=== PATIENT | male | born 1950 | race African-American/Black ===

== ENCOUNTER 2020-08-28 23:54 | Inpatient (IN) | payer MEDICARE, MEDICAID ==
[2020-08-29 00:30] VITALS: BMI 23.3
[2020-08-29] MEDS ORDERED: Acetaminophen 325 MG TAB PO PRN (01:23)
[2020-08-29] MEDS ORDERED: Sodium Chloride 0.9% 1,000 ML IV SCH (01:30)
--- NOTE | 2020-08-29 01:39 | PDOC.HHP ---
Hospitalist HPI - History of Present Illness Altered mental status History of Present Illness: 70-year-old -[place] gentleman with a diagnosis of dementia, alert but confused at baseline was sent to [facility] ED due to worsening mental status. CT head done demonstrated ventriculomegaly which is unchanged from previous CTs. Per report, patient has been scheduled to have a CASING MAN shunt done the end of this month. There was a concern for worsening hydrocephalus. Patient was then transferred here to be evaluated by neurosurgery. UA done in the ED did not show any evidence of UTI. Patient was afebrile, no evidence of sepsis, no leukocytosis. Patient was confused when I saw him on the floor for examination and could not provide any history. Hospitalist ROS - Review of Systems ROS unobtainable: due to mental status - Medication Medications: Medication Instructions Recorded Confirmed Type Amlodipine [Norvasc] 10 mg DAILY 08/29/20 08/29/20 History Desmopressin Acetate 0.1 mg BID 08/29/20 08/29/20 History Dorzolamide HCl/Timolol Maleat 1 drop BID 08/29/20 08/29/20 History [Dorzolamide HCl/Timolol Maleate Ophth] Finasteride 5 mg DAILY 08/29/20 08/29/20 History Fluticasone Propionate [Flonase 2 sprays DAILY 08/29/20 08/29/20 History Nasal [place]] Levothyroxine Sodium 75 mcg DAILY 08/29/20 08/29/20 History Metoprolol Tartrate 25 mg BID-WM 08/29/20 08/29/20 History Montelukast Sodium [Singulair] 10 mg DAILY 08/29/20 08/29/20 History Montelukast Sodium [Singulair] 10 mg HS 08/29/20 08/29/20 History Rosuvastatin Calcium 20 mg HS 08/29/20 08/29/20 History Tamsulosin HCl [Flomax] 0.4 mg DAILY 08/29/20 08/29/20 History Hospitalist History - Past Medical History Other Medical History: Hypothyroidism, dementia, hyponatremia, hypercholesterolemia, GERD, BPH. - Family History Other Family History: Reviewed and noncontributory - Social History Smoking Status: Never smoker Alcohol: reports: None Drugs: reports: none - Exam General Appearance: NAD General - other findings: Confused Eye: PERRL, anicteric sclera ENT: normocephalic atraumatic, no oropharyngeal lesions, moist mucosa Neck: supple, symmetric, no JVD, no thyromegaly Heart: RRR, no murmur, no gallops Respiratory: CTAB, no wheezes, no rales, no ronchi Gastrointestinal: soft, non-tender, non-distended, normal bowel sounds Extremities: no cyanosis, no edema Skin: normal turgor, no rashes Neurological: cranial nerve grossly intact, no weakness, no focal deficits Musculoskeletal: normal tone, normal strength Psychiatric - other findings: Confused. Hospitalist Results - Labs Result Diagrams: 08/29/20 05:20 Lab results: WBC 5.4, hemoglobin 13.6, platelet 189, sodium 133 potassium 4.2 chloride 100 CO2 24 BUN 8 creatinine 0.8. UA negative for UTI. - EKG Interpretation EKG: Normal sinus rhythm. - Radiology Interpretation CT scan - head Status: report reviewed by me (Ventriculomegaly with decreased attenuation of periventricular white matter stable as compared to findings on June 09, 2020.) Hospitalist H&P A/P - Problem (1) Altered mental status Code(s): R41.82 - ALTERED MENTAL STATUS, UNSPECIFIED Status: Acute (2) Hydrocephalus Code(s): G91.9 - HYDROCEPHALUS, UNSPECIFIED Status: Acute (3) Hyponatremia Code(s): E87.1 - HYPO-OSMOLALITY AND HYPONATREMIA Status: Acute (4) Dementia Code(s): F03.90 - UNSPECIFIED DEMENTIA WITHOUT BEHAVIORAL DISTURBANCE Status: Acute (5) BPH (benign prostatic hyperplasia) Code(s): N40.0 - BENIGN PROSTATIC HYPERPLASIA WITHOUT LOWER URINRY TRACT SYMP Status: Acute - Plan Plan: Admit to the medical floor. Supportive measures with IV hydration. Check vitamin B12, TSH. Consult to neurosurgery. IV hydration with normal saline to treat hyponatremia Continue home medications for other chronic medical problems. I am unable to discuss advanced directive at this time given patient's altered mental status and no family member available.
[2020-08-29 05:46] LABS: #Lymphocytes 1.4 thou/uL (1.20-3.40); #Monocytes 0.7 thou/uL (0.11-0.59); #Neutrophils 2.4 thou/uL (1.40-6.50); %Basophils 0.2 % (0.0-1.0); %Eosinophils 0.5 % (0.0-10.0); %Lymphocytes 31.8 % (21.0-51.0); %Monocytes 14.5 % (0.0-10.0); Hemoglobin 13.4 g/dL (14.0-18.0); Mean Corpuscular HGB CONC 32.9 g/dL (32.0-36.0); Mean Corpuscular Hemoglobin 32.8 pg (27.0-31.0); Mean Corpuscular Volume 99.8 fL (78.0-98.0); Mean Platelet Volume 7.6 fL (7.4-10.4); Platelet Count 190 thou/uL (130-400); RBC Distribution Width 11.3 % (11.5-14.5); White Blood Cell (WBC) Count 4.5 thou/uL (4.8-10.8)
[2020-08-29 06:17] LABS: Anion Gap 11 mmol/L (10-20); BUN (Urea Nitrogen) 7 mg/dL (8.4-25.7); Calc. Creatinine Clearance 99 mL/min (70-130); Calcium 9.3 mg/dL (7.8-10.44); Carbon Dioxide 26 mmol/L (23-31); Chloride 106 mmol/L (98-107); Estimated GFR-MDRD Greater than 90; Glucose 97 mg/dL (80-115); Potassium 3.8 mmol/L (3.5-5.1); Sodium 139 mmol/L (136-145)
[2020-08-29 06:32] LABS: Thyroid Stimulating Hormone 1.7883 uIU/mL (0.35-4.94)
[2020-08-29 07:09] VITALS: TEMP 97.6
[2020-08-29] MEDS ORDERED: Amlodipine 10 MG TAB PO SCH (09:00)
[2020-08-29] MEDS ORDERED: Fluticasone Propionate Nasal Spray 16 gm Bottle NASAL SCH (09:00)
[2020-08-29] MEDS ORDERED: Tamsulosin HCl 0.4 MG CAP PO SCH (09:00)
[2020-08-29] MEDS ORDERED: Levothyroxine Sodium 75 MCG TAB PO SCH (09:00)
[2020-08-29] MEDS ORDERED: Montelukast Sodium 10 mg Tablet PO SCH ×2 (09:00→21:00)
[2020-08-29] MEDS ORDERED: Finasteride 5 MG TAB PO SCH (09:00)
[2020-08-29] MEDS ORDERED: Enoxaparin Sodium 40 MG/0.4 ML SYRINGE SC SCH (09:00)
--- NOTE | 2020-08-29 11:42 | RAD ---
XR Chest 1 View Portable History: Altered mental status Comparison: None. Findings: Lungs are clear. No pneumothorax or effusion. Cardiac silhouette and mediastinal contours a re within normal limits. No acute osseous abnormality. Impression: No acute intrathoracic abnormality.
[2020-08-29 12:01] VITALS: BP 143/77
[2020-08-29] MEDS ORDERED: Sodium Chloride 0.9% 500 ML IV SCH (14:00)
[2020-08-29] MEDS ORDERED: Metoprolol Tartrate 25 MG TAB PO SCH (17:00)
[2020-08-29] MEDS ORDERED: FLU VACC QS2020-21(65YR UP)/PF 240 MCG/0.7 ML SYRINGE IM ONE (21:00)
[2020-08-29] MEDS ORDERED: Desmopressin 0.2 mg Tablet PO SCH (21:00)
[2020-08-29] MEDS ORDERED: Rosuvastatin 20 MG TAB PO SCH ×2 (21:00)
--- NOTE | 2020-08-30 01:55 | DIS ---
DATE OF ADMISSION: 08/28/2020 DATE OF DISCHARGE: 08/29/2020 DISCHARGE DIAGNOSES: 1. Acute metabolic encephalopathy, unclear etiology. 2. Hyponatremia, stable. 3. Hyperlipidemia. 4. Hydrocephalus. 5. Dementia. HOSPITAL COURSE: The patient is a 70-year-old male, who initially presented to the hospital for change in mental status. The patient lives with the family. I did speak with patient's sister, Ms. Alcaraz, updated her. Neurosurgery was consulted, who stated that patient will just keep his normal followup appointment this month. No current intervention is required. His UA and chest x-ray were normal. No elevated leukocytosis. The patient had mildly elevated CK, which most likely was secondary to fall at home. However, family stated that he did not hit his head. He did have a CT brain here, which did not show any acute abnormalities. He did have ventriculomegaly with decreased attenuation of periventricular white matter, however, this was stable. The patient's EKG was normal sinus rhythm. The patient's TSH was normal. The patient will be discharged home. He will follow up with primary and also with Neurosurgery. I did discuss this case with the patient's sister and she is ready to take the patient back home. DISCHARGE MEDICATIONS: As of the followin. Amlodipine 10 mg daily. 2. Desmopressin 0.1 b.i.d. 3. Levothyroxine 75 mcg daily. 4. Singulair 10 mg daily. 5. Metoprolol 25 mg b.i.d. 6. Tamsulosin 0.4 daily. 7. Atorvastatin 20 mg p.o. at bedtime. I did not stop the Crestor since his mild elevated CK was most likely secondary to a fall and also patient drinks lot of water per the family. PHYSICAL EXAMINATION: VITAL SIGNS: Temperature 97.6, 60, 18, 98% on room air, 114/72. GENERAL: He is awake, alert, and oriented x3. Does not appear in distress. CV: S1, S2 present. No murmurs, rubs, or gallops. Again, he will be discharged home. Follow up with primary. Job ID: [id number]
--- NOTE | 2020-09-01 04:28 | PQF ---
CLINICAL DOCUMENTATION CLARIFICATION FORM: Dear : Rin Telles Date / Time: 09/01/2020426 Please exercise your independent, professional judgment in responding to the clarification form. Clinical indicators are provided on the bottom of this form for your review In your clinical opinion based on clinical findings below, can you please identify the etiology of Metabolic Encephalopathy if due to: Please check appropriate box(es): [ ] Hydrocephalus [ ] Hyponatremia [x ] Dementia [ ] Other diagnosis [ ] Unable to determine Physician Signature: Date/Time: For continuity of documentation, please document condition throughout progress notes and discharge summary. Thank You. To be completed by CDI/Coding staff for physician review: Present Clinical Indicators - Signs / Symptoms / Labs Results and Location in Medical Record [X] BUN 7, Creatinine 0.79, Sodium 139, creatinine kinase 425 Laboratory 08/29 [X] BP 157/73, Pulse 66, Resp 18, Temp 97.7 Vital signs 08/29 [X] Alert but confused at baseline H&P p1 08/28 Dr Luna [X] CT head: Demonstrated ventriculomegaly H&P p1 08/28 Dr Luan [X] Concern for worsening hydrocephalus H&P p1 08/28 Dr Luna [X] Acute metabolic encephalopathy DS p1 08/29 Dr Telles Present Risk Factors Results and Location in Medical Record [X] 70 year-old Male H&P p1 08/28 Dr Luna [X] Dementia H&P p1 08/28 Dr Luna [X] Hyponatremia H&P p1 08/28 Dr Luna [X] Hydrocephalus H&P p1 08/28 Dr Luna [X] HLD H&P p1 08/28 Dr Luna Present Treatments Results and Location in Medical Record [X] IVF Normal Saline 1L MAR 08/29 [X] CT head H&P p1 08/28 Dr Luna [X] Scheduled for TRANSPLANT NURSE PRACTITIONER shunt H&P p1 08/28 Dr Luna CDS/[facility] Signature: Ioana Navarro Phone #: ext [phone] Date/Time: 09/01/20208 This is a permanent part of the Medical Record [facility]
== END 2020-08-29 16:52 | disposition home or self-care (01) | DRG 884 ==
LOC: T4-B 23:54
PROVIDERS: ADMIT Internal Medicine; ATTEND Internal Medicine
DX: F03.90 Unspecified dementia, unspecified severity, without behavioral disturbance, psychotic disturbance, mood disturbance, and anxiety (principal); G93.41 Metabolic encephalopathy; E87.1 Hypo-osmolality and hyponatremia; G91.9 Hydrocephalus, unspecified; E78.5 Hyperlipidemia, unspecified; E03.9 Hypothyroidism, unspecified; E78.00 Pure hypercholesterolemia, unspecified; K21.9 Gastro-esophageal reflux disease without esophagitis; N40.0 Benign prostatic hyperplasia without lower urinary tract symptoms; Z79.899 Other long term (current) drug therapy; Z79.51 Long term (current) use of inhaled steroids
CPT/HCPCS: 36415; 71045; 80048; 82550; 82607; 84443; 85025; J1650

== ENCOUNTER 2020-09-11 09:18 | Inpatient (IN) | payer MEDICARE, MEDICAID ==
[2020-09-10 12:48] VITALS: BMI 29.9
--- NOTE | 2020-09-10 16:09 | HP ---
REASON FOR HISTORY AND PHYSICAL: Surgery on 09/11/2020, case #[id number]. HISTORY OF PRESENT ILLNESS: Mr. Rodgers is a 70-year-old gentleman with hydrocephalus and cognitive impairment. His sister reports that he has had some recent falls and gradually worsening gait and is wanting to proceed with ADJUNCT TRAINER shunt. REVIEW OF SYSTEMS: CONSTITUTIONAL: Denies fever or chills. ENT: Denies change in vision or hearing. CARDIAC: Denies chest pain, shortness of breath, or diaphoresis. PULMONARY: Denies shortness of breath, cough, or hemoptysis. GI: Denies abdominal pain, nausea, vomiting, diarrhea, change in stool formation and consistency. : Denies trouble with urination, frequency of urination, or bloody urine. SKIN: Denies skin rash, bruising, bleeding, or skin masses. MUSCULOSKELETAL: As per history of present illness. NEUROLOGIC: As per history of present illness. PSYCHOLOGIC: Denies anxiety, depression, or behavior changes. MEDICAL HISTORY: High cholesterol, depression, glaucoma/cataracts, high blood pressure, thyroid disease, dementia, hyponatremia, GERD, BPH. FAMILY HISTORY: Reviewed and noncontributory. SOCIAL HISTORY: Smoking status, never smoker. Alcohol, reports none. Drugs, reports none. MEDICATIONS: 1. Amlodipine 10 mg. 2. Desmopressin 0.1 mg. 3. Dorzolamide/timolol one drop b.i.d. 4. Finasteride 5 mg. 5. Fluticasone 2 sprays. 6. Levothyroxine 75 mcg. 7. Metoprolol 25 mg. 8. Singulair 10 mg. 9. Rosuvastatin 20 mg. 10. Tamsulosin. 11. Flomax 0.4 mg. ALLERGIES: NO KNOWN ALLERGIES. PHYSICAL EXAMINATION: VITAL SIGNS: Weight 190 pounds. HEENT: Pupils are equal. Extraocular movements are intact. NECK: Soft, supple. No masses are noted. Range of motion is intact and nonpainful. GENERAL APPEARANCE: NAD, confused. Gait and station: Off-balance and stiff. Motor exam: No new weakness. NEUROLOGIC: Cranial nerves grossly intact. No weakness. No focal deficits. IMAGING STUDIES: Head CT, hydrocephalus, large ventricles. ASSESSMENT: Hydrocephalus. PLAN: 1. ADJUNCT TRAINER shunt. 2. Anesthesia clearance. 3. Preop labs; CBC, PT, PTT, COVID-19 testing. 4. Programmable valve to be placed. INFORMED CONSENT: We discussed the indications, risks, benefits, alternatives, and expected results from surgery. The risks discussed included, but were not limited to, infection, bleeding, CSF leak, brain damage, significant loss of neurological function, seizure, stroke, dependency for normal care, cardiopulmonary complications of anesthesia or . Long-term complications discussed included, but were not limited to shunt failure and shunt infection. The family understands the risk and is willing to proceed. Job ID: [id number]
[2020-09-11] MEDS ORDERED: PHENYLEPHRINE-NS 100 MCG/ML 10 ML SYRINGE ONE (10:41)
[2020-09-11] MEDS ORDERED: EPHEDRINE 25 MG/5 ML SYRINGE ONE (10:41)
[2020-09-11] MEDS ORDERED: Dexamethasone 20 MG/5 ML VIAL ONE (10:41)
[2020-09-11] MEDS ORDERED: Glycopyrrolate 0.2 MG/ML 5 ML SYRINGE ONE (10:41)
[2020-09-11] MEDS ORDERED: Rocuronium Bromide 10 MG/ML (10ML VIAL) ONE (10:41)
[2020-09-11] MEDS ORDERED: Lidocaine 1% PF 5 ML VIAL ONE (10:41)
[2020-09-11] MEDS ORDERED: Ondansetron PF 4 MG/2 ML Vial ONE (10:41)
[2020-09-11] MEDS ORDERED: PROPOFOL 200 MG/20 ML VIAL ONE (10:41)
[2020-09-11] MEDS ORDERED: Sodium Chloride 0.9% 10 ML ONE (11:29)
[2020-09-11] MEDS ORDERED: Lidocaine 0.5%/Epinephrine 1:200,000 50 ml Vial ONE (11:29)
[2020-09-11] MEDS ORDERED: Vancomycin 1 GM/200 ML BAG ONE ×2 (11:52→11:53)
[2020-09-11 12:09] LABS: INR-International Normal Ratio 1.1; Prothrombin Time 14.5 sec (12.0-14.7)
[2020-09-11] MEDS ORDERED: Fentanyl 250 MCG/5 ML VIAL ONE (12:10)
[2020-09-11] MEDS ORDERED: Thrombin 5000 UNITS/5 ML VIAL ONE (12:10)
[2020-09-11] MEDS ORDERED: Vancomycin HCl 20 MG, Gentamicin (PEDI) 8 MG, Admixture Fee 1 EACH in Sodium Chloride 0... FS SCH (12:15)
[2020-09-11] MEDS ORDERED: Promethazine HCl 25 MG/ML VIAL IM PRN (14:39)
[2020-09-11] MEDS ORDERED: Acetaminophen 325 MG TAB PO PRN (14:39)
[2020-09-11] MEDS ORDERED: hydrALAZINE 20 MG/ML VIAL SLOW IVP PRN (14:39)
[2020-09-11] MEDS ORDERED: Promethazine 25 MG TAB PO PRN (14:39)
[2020-09-11] MEDS ORDERED: Labetalol HCl 100 MG/20 ML VIAL SLOW IVP PRN (14:39)
[2020-09-11] MEDS ORDERED: diphenhydrAMINE 50 MG CAP PO PRN (14:39)
[2020-09-11] MEDS ORDERED: chlorproMAZINE HCl 25 MG TAB PO PRN (14:45)
[2020-09-11] MEDS ORDERED: Fluticasone Propionate Nasal Spray 16 gm Bottle NASAL PRN (14:45)
[2020-09-11] MEDS ORDERED: Morphine 2 MG/ML VIAL SLOW IVP PRN (14:47)
[2020-09-11] MEDS ORDERED: traMADol HCl 50 MG TAB PO PRN (14:48)
[2020-09-11] MEDS ORDERED: Scopolamine 1.5 mg/72 hour Patch TD PRN (14:49)
[2020-09-11] MEDS ORDERED: Acetaminophen/Codeine 30-300mg Tablet PO PRN (14:49)
[2020-09-11] MEDS ORDERED: Fentanyl 100 MCG/2 ML VIAL ONE ×2 (15:21→16:39)
[2020-09-11] MEDS ORDERED: Metoprolol Tartrate 5 MG/5 ML VIAL ONE (18:14)
--- NOTE | 2020-09-11 18:14 | OP ---
DATE OF PROCEDURE: 09/11/2020 ENVIRONMENTAL ENGINEER: Spenser Enamorado PA-C. PREOPERATIVE INDICATION: Prevent further neurological deterioration. PREOPERATIVE DIAGNOSIS: Long-standing hydrocephalus, family reported improvement with lumbar puncture. POSTOPERATIVE DIAGNOSIS: Long-standing hydrocephalus, family reported improvement with lumbar puncture. OPERATIVE PROCEDURE: Placement of right ventriculoperitoneal shunt, programmable valve set at 2.5. PREOPERATIVE MEDICATION: Vancomycin 1 g IV. DRAIN NUMBER: Zero. DRAIN TYPE: None. DESCRIPTION OF PROCEDURE: The patient was brought to the operating room. General endotracheal anesthesia was induced. The patient was positioned supine on the operating table and his head turned to the left and supported by a gel-filled donut-shaped headrest. We removed hair from the right side of the scalp. We marked out an inferoparietal incision that would give us access to the occipital horn of the lateral ventricle and also an incision in the subxiphoid region in the midline of the abdomen. We sterilely prepped and draped the abdomen, the chest, the neck, and the scalp on the right side. We opened our cranial incision with a 10 blade knife. We controlled bleeding with bipolar and monopolar cautery. We dissected sharply down to the periosteal layer. We left the periosteum on the bone. We brought a high-speed drill into the field and placed a bisi hole in the posterior parietal region and waxed the bone edges. We coagulated the dura, but did not open it. We placed a self-retaining retractor to keep our curvilinear flap open. We then moved to the abdominal incision. We opened our midline subxiphoid incision with a 15 blade knife. We controlled bleeding with bipolar cautery. We dissected down to the fascia and cut this in the midline. Through the fascia, we saw the preperitoneal fat. With hemostats, we grabbed and folded the peritoneum and brought it out of our incision. We cut between two hemostats and could visualize the viscera. This was clearly within the peritoneum. We placed four hemostats around the sides of the cut peritoneum and a silk pursestring suture was sewn around the hemostats, but not tied. We irrigated with bacitracin irrigation. We returned to the cranial incision. We tunneled a shunt passer from the cranial incision to the abdominal incision, removed the stylet and passed our peritoneal catheter through the passing device from one incision to the other. The passing device was removed inferiorly. We connected the proximal end of the peritoneal catheter to the distal end of the shunt valve. We reinforced that connection with silk suture. We removed slack from the line. We then opened the dura with a 15 blade knife and coagulated the thomas. A ventricular catheter was brought into the field. We passed the catheter into the occipital horn of the lateral ventricle. We encountered the ependyma at about 3 cm of depth. We removed the stylet and advanced it to about 8 to 9 cm, and there was brisk CSF flow. We clamped off the ventricular catheter with a rubber shod hemostat. We cut the excess portion of the catheter and then brought vancomycin/gentamicin antibiotic irrigation into the field. 2 mL of this mixture was advanced into the ventricular system through our ventricular catheter. We then clamped off the ventricular catheter again. We connected this ventricular catheter to the proximal portion of the valve and reinforced our connection with silk suture. We pumped our shunt valve and saw the CSF briskly flowing from the distal end of the peritoneal catheter, which was out of the abdominal incision. The right angle device left at the edge of the bisi hole allowed the ventricular catheter to make right angle and this was tacked down to the periosteum, so was the valve itself. We irrigated with bacitracin irrigation at both incisions. We placed the distal end of the peritoneal catheter into the peritoneum and tied our pursestring suture around it. We irrigated once again with bacitracin irrigation. We closed both incisions in anatomical layers and we applied a sterile dressing. This was a clean case, no contamination. Job ID: [id number]
[2020-09-11] MEDS: Metoprolol Tartrate 25 MG TAB PO SCH (20:15)
[2020-09-11] MEDS: Sodium Chloride 0.9% 1,000 ML IV SCH (20:15)
[2020-09-11] MEDS ORDERED: DorzolamidE/Timolol 2%/0.5% Ophth Soln 10 ml Bottle FS SCH (21:00)
[2020-09-11] MEDS ORDERED: Montelukast Sodium 10 mg Tablet PO SCH (21:00)
[2020-09-11] MEDS ORDERED: Rosuvastatin 20 MG TAB PO SCH (21:00)
[2020-09-11] MEDS: CEFAZOLIN 2 GM in Premix Bag 1 BAG IVPB SCH (22:13)
[2020-09-11] MEDS: Desmopressin 0.2 mg Tablet PO SCH (22:13)
[2020-09-12] MEDS: Sodium Chloride 0.9% 1,000 ML IV SCH (04:25)
[2020-09-12] MEDS: CEFAZOLIN 2 GM in Premix Bag 1 BAG IVPB SCH (05:42)
[2020-09-12] MEDS ORDERED: Levothyroxine Sodium 75 MCG TAB PO SCH (06:00)
--- NOTE | 2020-09-12 06:54 | PRG ---
DATE OF SERVICE: 09/12/2020 Mr. Rodgers is one day out from a ventriculoperitoneal shunt placement. He has been afebrile overnight and his vital signs are stable. His neurological examination is unchanged from yesterday. CT scan looks like good shunt positioning this morning. He can be discharged from the hospital. He should keep his dressings on today and they can be removed tomorrow. Showers can occur tomorrow evening or the following day. Followup will be in 2 weeks to check his incisions and to reprogram the shunt to 2.0. Job ID: [id number]
--- NOTE | 2020-09-12 08:16 | CT ---
PRELIMINARY REPORT/[facility]/EMERGENCY AFTER HOURS PROCEDURE: EXAM: CT Head Without Intravenous Contrast. CLINICAL HISTORY: S/P METEOROLOGICAL ENGINEER shunt placement TECHNIQUE: Axial computed tomography images of the head/brain without intravenous contrast. COMPARISON: None provided. FINDINGS: BRAIN: No acute intraparenchymal hemorrhage. No mass lesion. No CT evidence for acute territorial inf arct. No midline shift or extra-axial collection. VENTRICLES: Marked ventriculomegaly. Some pneumocephalus is noted status post recent placement of a METEOROLOGICAL ENGINEER shunt tip is against the septum pellucidum posteriorly on the right. ORBITS: The orbits are unremarkable. SINUSES AND MASTOIDS: The paranasal sinuses and mastoid air cells are clear. SOFT TISSUES: No significant facial or scalp soft tissue swelling evident. No radiopaque foreign body is seen. BONES: No acute skull fracture. IMPRESSION: Hydrocephalus status post shunt placement. ELECTRONICALLY SIGNED BY: Spenser Bustos MD Sep 12, 2020 3:10:[address] AM CDT FINAL REPORT CT OF THE BRAIN WITHOUT CONTRAST: HISTORY: The patient has hydrocephalus. Recent METEOROLOGICAL ENGINEER shunt placement. COMPARISON: Comparison with 06/04/2020. FINDINGS/IMPRESSION: I agree with the findings and impression given in the preliminary report per [facility] physici an. The patient has hydrocephalus. The patient has had interval placement of a right posterior vent riculostomy catheter. Pneumocephalus is seen from recent METEOROLOGICAL ENGINEER shunt placement. POS: [id number]
[2020-09-12] MEDS ORDERED: Finasteride 5 MG TAB PO SCH (09:00)
[2020-09-12] MEDS ORDERED: FLU VACC QS2020-21(65YR UP)/PF 240 MCG/0.7 ML SYRINGE IM ONE (09:00)
[2020-09-12] MEDS ORDERED: Amlodipine 10 MG TAB PO SCH (09:00)
[2020-09-12] MEDS ORDERED: Sucralfate 1 GM TAB PO SCH (09:00)
[2020-09-12] MEDS ORDERED: Tamsulosin HCl 0.4 MG CAP PO SCH (09:00)
[2020-09-12] MEDS: Metoprolol Tartrate 25 MG TAB PO SCH (09:44)
[2020-09-12] MEDS: Desmopressin 0.2 mg Tablet PO SCH (09:48)
[2020-09-12 11:31] VITALS: TEMP 98.6
[2020-09-12 12:55] VITALS: BP 134/77
== END 2020-09-12 13:46 | disposition home or self-care (01) | DRG 33 ==
LOC: SURG A 09:48 → IMCU/EMU 19:40
PROVIDERS: ADMIT Neurological Surgery; ATTEND Neurological Surgery
PROC: 00160J6 Bypass Cerebral Ventricle to Peritoneal Cavity with Synthetic Substitute, Open Approach (ICD-10-PCS; principal; 2020-09-11)
DX: G91.9 Hydrocephalus, unspecified (principal); G31.84 Mild cognitive impairment of uncertain or unknown etiology; K21.9 Gastro-esophageal reflux disease without esophagitis; E78.00 Pure hypercholesterolemia, unspecified; F32.9 Major depressive disorder, single episode, unspecified; E03.9 Hypothyroidism, unspecified; F03.90 Unspecified dementia, unspecified severity, without behavioral disturbance, psychotic disturbance, mood disturbance, and anxiety; N40.0 Benign prostatic hyperplasia without lower urinary tract symptoms; Z79.899 Other long term (current) drug therapy
CPT/HCPCS: 36415; 70450; 85610; 85730; 93005; 93010; J0690; J1100; J2001; J2405; J2704; J3010; J3370; J3490

== ENCOUNTER 2021-04-16 06:45 | Inpatient (IN) | payer MEDICARE, MEDICAID ==
[2021-04-15 09:41] VITALS: BMI 25.7
[2021-04-16] MEDS ORDERED: EPINEPHrine 1 MG/ML AMP ONE (06:57)
[2021-04-16] MEDS ORDERED: Thrombin 5000 UNITS/5 ML VIAL ONE (06:57)
[2021-04-16] MEDS ORDERED: Bupivacaine PF 0.5% 30 ML VIAL ONE (06:57)
[2021-04-16] MEDS ORDERED: Bacitracin Zinc Ointment 30 gm TUBE ONE (06:57)
[2021-04-16] MEDS ORDERED: Fentanyl 100 MCG/2 ML VIAL ONE ×3 (07:09→11:43)
[2021-04-16] MEDS ORDERED: PROPOFOL 200 MG/20 ML VIAL ONE (07:46)
[2021-04-16] MEDS ORDERED: Ondansetron PF 4 MG/2 ML Vial ONE (07:46)
[2021-04-16] MEDS ORDERED: Dexamethasone 20 MG/5 ML VIAL ONE (07:46)
[2021-04-16] MEDS ORDERED: Rocuronium Bromide 10 MG/ML (10ML VIAL) ONE (07:46)
[2021-04-16] MEDS ORDERED: ePHEDrine Sulfate 50 MG/10 ML VIAL ONE (07:46)
[2021-04-16] MEDS ORDERED: PHENYLEPHRINE-NS 100 MCG/ML 10 ML SYRINGE ONE (07:46)
[2021-04-16] MEDS ORDERED: Glycopyrrolate 0.2 MG/ML 5 ML SYRINGE ONE (07:46)
[2021-04-16] MEDS ORDERED: Lidocaine 1% PF 5 ML VIAL ONE (07:46)
[2021-04-16 07:53] LABS: #Lymphocytes 1.2 thou/uL (1.20-3.40); #Monocytes 0.3 thou/uL (0.11-0.59); %Basophils 0.2 % (0.0-1.0); %Eosinophils 0.7 % (0.0-10.0); %Lymphocytes 26.8 % (21.0-51.0); %Monocytes 6.4 % (0.0-10.0); Hemoglobin 13.6 g/dL (14.0-18.0); Mean Corpuscular Hemoglobin 33.6 pg (27.0-31.0); Mean Corpuscular Volume 98.8 fL (78.0-98.0); Mean Platelet Volume 7.2 fL (7.4-10.4); Platelet Count 173 thou/uL (130-400); RBC Distribution Width 11.3 % (11.5-14.5); Red Blood Cell (RBC) Count 4.05 mill/uL (4.70-6.10); White Blood Cell (WBC) Count 4.5 thou/uL (4.8-10.8)
[2021-04-16 08:05] LABS: Anion Gap 9 mmol/L (10-20); BUN (Urea Nitrogen) 4 mg/dL (8.4-25.7); Calc. Creatinine Clearance 84 mL/min (70-130); Calcium 9.5 mg/dL (7.8-10.44); Carbon Dioxide 26 mmol/L (23-31); Chloride 110 mmol/L (98-107); Glucose 101 mg/dL (80-115); Sodium 141 mmol/L (136-145)
[2021-04-16] MEDS ORDERED: Phenylephrine 10 MG/ML VIAL ONE (08:18)
[2021-04-16 08:19] LABS: INR-International Normal Ratio 1.1; PTT 36.9 sec (22.9-36.1); Prothrombin Time 14.6 sec (12.0-14.7)
[2021-04-16] MEDS ORDERED: SUGAMMADEX SODIUM 200 MG/2 ML VIAL ONE (10:33)
[2021-04-16] MEDS ORDERED: HYDROmorphone 2 MG/ML VIAL SLOW IVP PRN (10:53)
[2021-04-16] MEDS ORDERED: Promethazine HCl 25 MG/ML VIAL SLOW IVP PRN (10:53)
[2021-04-16] MEDS ORDERED: Ondansetron HCl/PF 4 MG/2 ML Vial IVP PRN (10:53)
[2021-04-16] MEDS ORDERED: Ondansetron PF 4 MG/2 ML Vial IVP PRN (12:41)
[2021-04-16] MEDS ORDERED: Morphine 2 MG/ML VIAL SLOW IVP PRN (12:41)
[2021-04-16] MEDS ORDERED: diphenhydrAMINE 25 MG CAP PO PRN (12:41)
[2021-04-16] MEDS ORDERED: Acetaminophen/Codeine 30-300mg Tablet PO PRN ×2 (12:41)
[2021-04-16] MEDS ORDERED: Milk Of Magnesia 30 ML UDCUP PO PRN (12:41)
[2021-04-16] MEDS ORDERED: Bisacodyl 10 MG SUPP PR PRN (12:41)
[2021-04-16] MEDS ORDERED: Mag-Al 1200 mg/1200 mg/30 ML UDCUP PO PRN (12:41)
[2021-04-16] MEDS ORDERED: diphenhydrAMINE 50 MG/ML VIAL IVP PRN (12:41)
[2021-04-16] MEDS ORDERED: Promethazine 25 MG TAB PO PRN (12:41)
[2021-04-16] MEDS ORDERED: Morphine 4 MG/ML VIAL SLOW IVP PRN (12:41)
[2021-04-16] MEDS ORDERED: Promethazine HCl 12.5 MG SUPP PR PRN (12:41)
[2021-04-16] MEDS ORDERED: Prochlorperazine 10 MG/2 ML VIAL IM PRN (12:41)
[2021-04-16] MEDS ORDERED: Promethazine HCl 25 MG/ML VIAL IM PRN (12:41)
[2021-04-16] MEDS ORDERED: tiZANidine HCl 4 MG TAB PO PRN (12:41)
[2021-04-16] MEDS ORDERED: chlorproMAZINE HCl 25 MG TAB PO PRN (12:45)
[2021-04-16] MEDS ORDERED: Fluticasone Propionate Nasal Spray 16 gm Bottle NASAL PRN (12:45)
[2021-04-16] MEDS ORDERED: Montelukast Sodium 10 mg Tablet PO PRN (12:45)
[2021-04-16] MEDS ORDERED: Scopolamine 1.5 mg/72 hour Patch TD SCH (13:00)
[2021-04-16] MEDS: CEFAZOLIN 2 GM in Premix Bag 1 BAG IVPB SCH ×2 (16:13→23:39)
[2021-04-16] MEDS: Sodium Chloride 0.9% 1,000 ML IV SCH (16:15)
[2021-04-16] MEDS: Metoprolol Tartrate 25 MG TAB PO SCH (17:30)
[2021-04-16] MEDS: Metoclopramide HCl 10 MG TAB PO SCH (20:45)
[2021-04-16] MEDS: Desmopressin 0.2 mg Tablet PO SCH (20:45)
[2021-04-16] MEDS ORDERED: Rosuvastatin 20 MG TAB PO SCH (21:00)
[2021-04-16] MEDS: DorzolamidE/Timolol 2%/0.5% Ophth Soln 10 ml Bottle EA EYE SCH (23:41)
[2021-04-17 05:22] LABS: #Lymphocytes 1.1 thou/uL (1.20-3.40); #Monocytes 0.9 thou/uL (0.11-0.59); #Neutrophils 8.6 thou/uL (1.40-6.50); %Basophils 0.2 % (0.0-1.0); %Eosinophils 0.1 % (0.0-10.0); %Lymphocytes 10.7 % (21.0-51.0); %Monocytes 8.3 % (0.0-10.0); %Neutrophils 80.7 % (42.0-75.0); Hemoglobin 13.5 g/dL (14.0-18.0); Mean Corpuscular HGB CONC 33.1 g/dL (32.0-36.0); Mean Corpuscular Hemoglobin 32.7 pg (27.0-31.0); Mean Corpuscular Volume 98.8 fL (78.0-98.0); Mean Platelet Volume 7.4 fL (7.4-10.4); Platelet Count 186 thou/uL (130-400); RBC Distribution Width 11.2 % (11.5-14.5); Red Blood Cell (RBC) Count 4.13 mill/uL (4.70-6.10); White Blood Cell (WBC) Count 10.6 thou/uL (4.8-10.8)
[2021-04-17 05:44] LABS: Anion Gap 12 mmol/L (10-20); BUN (Urea Nitrogen) 8 mg/dL (8.4-25.7); Calc. Creatinine Clearance 83 mL/min (70-130); Calcium 9.5 mg/dL (7.8-10.44); Carbon Dioxide 26 mmol/L (23-31); Chloride 103 mmol/L (98-107); Glucose 106 mg/dL (80-115); Sodium 137 mmol/L (136-145)
[2021-04-17] MEDS: Sodium Chloride 0.9% 1,000 ML IV SCH ×2 (05:54→16:26)
[2021-04-17] MEDS ORDERED: Levothyroxine Sodium 50 MCG TAB PO SCH (06:00)
[2021-04-17] MEDS ORDERED: Tamsulosin HCl 0.4 MG CAP PO SCH ×2 (06:00→09:00)
[2021-04-17] MEDS: Metoprolol Tartrate 25 MG TAB PO SCH ×2 (08:27→16:38)
[2021-04-17] MEDS: CEFAZOLIN 2 GM in Premix Bag 1 BAG IVPB SCH (08:27)
[2021-04-17] MEDS: Metoclopramide HCl 10 MG TAB PO SCH (08:28)
[2021-04-17] MEDS: DorzolamidE/Timolol 2%/0.5% Ophth Soln 10 ml Bottle EA EYE SCH (08:28)
[2021-04-17] MEDS ORDERED: Finasteride 5 MG TAB PO SCH (09:00)
[2021-04-17] MEDS ORDERED: Amlodipine 10 MG TAB PO SCH (09:00)
[2021-04-17] MEDS ORDERED: Sucralfate 1 GM TAB PO SCH (09:00)
[2021-04-17] MEDS: Desmopressin 0.2 mg Tablet PO SCH (09:33)
[2021-04-17 21:06] VITALS: BP 147/72; TEMP 98.6
== END 2021-04-17 20:59 | disposition swing bed (61) | DRG 516 ==
LOC: SDC 06:45 → SURG B 12:41
PROVIDERS: ADMIT Neurological Surgery; ATTEND Neurological Surgery
PROC: 01N10ZZ Release Cervical Nerve, Open Approach (ICD-10-PCS; principal; 2021-04-16)
DX: M47.12 Other spondylosis with myelopathy, cervical region (principal); M50.01 Cervical disc disorder with myelopathy, high cervical region; Z20.822 Contact with and (suspected) exposure to COVID-19; I11.0 Hypertensive heart disease with heart failure; E78.5 Hyperlipidemia, unspecified; I50.9 Heart failure, unspecified; R13.10 Dysphagia, unspecified; F03.90 Unspecified dementia, unspecified severity, without behavioral disturbance, psychotic disturbance, mood disturbance, and anxiety; F79 Unspecified intellectual disabilities; H40.9 Unspecified glaucoma; J30.2 Other seasonal allergic rhinitis; E03.9 Hypothyroidism, unspecified; N40.0 Benign prostatic hyperplasia without lower urinary tract symptoms; Z87.891 Personal history of nicotine dependence; Z79.899 Other long term (current) drug therapy; Z79.890 Hormone replacement therapy
CPT/HCPCS: 36415; 76000; 80048; 85025; 85610; 85730; 93005; 93010; J0171; J0690; J1100; J2270; J2370; J2405; J2704; J3010; J3370; J3490; S0020

== ENCOUNTER 2021-04-27 19:55 | Inpatient (IN) | payer MEDICARE, MEDICAID ==
[2021-04-27 20:52] LABS: #Lymphocytes 1.8 thou/uL (1.20-3.40); #Monocytes 0.6 thou/uL (0.11-0.59); #Neutrophils 3.7 thou/uL (1.40-6.50); %Basophils 0.5 % (0.0-1.0); %Eosinophils 0.7 % (0.0-10.0); %Lymphocytes 28.7 % (21.0-51.0); %Monocytes 10.1 % (0.0-10.0); %Neutrophils 59.9 % (42.0-75.0); Hemoglobin 14.5 g/dL (14.0-18.0); Mean Corpuscular HGB CONC 34.6 g/dL (32.0-36.0); Mean Corpuscular Hemoglobin 33.9 pg (27.0-31.0); Mean Corpuscular Volume 97.9 fL (78.0-98.0); Mean Platelet Volume 6.5 fL (7.4-10.4); Platelet Count 319 thou/uL (130-400); RBC Distribution Width 10.9 % (11.5-14.5); Red Blood Cell (RBC) Count 4.27 mill/uL (4.70-6.10); White Blood Cell (WBC) Count 6.2 thou/uL (4.8-10.8)
[2021-04-27 21:16] LABS: Troponin I Less than 0.010 ng/mL (< 0.028)
[2021-04-27 21:17] LABS: ALT (SGPT) 19 U/L (8-55); AST (SGOT) 12 U/L (5-34); Albumin 3.9 g/dL (3.4-4.8); Alkaline Phosphatase 104 U/L (40-110); Anion Gap 11 mmol/L (10-20); BUN (Urea Nitrogen) 17 mg/dL (8.4-25.7); Bilirubin, Total 0.7 mg/dL (0.2-1.2); Calc. Creatinine Clearance 0 mL/min (70-130); Calcium 9.7 mg/dL (7.8-10.44); Carbon Dioxide 22 mmol/L (23-31); Chloride 106 mmol/L (98-107); Globulin 3.6 g/dL (2.4-3.5); Glucose 111 mg/dL (80-115); Potassium 4.4 mmol/L (3.5-5.1); Protein, Total 7.5 g/dL (5.8-8.1); Sodium 135 mmol/L (136-145)
[2021-04-28 11:14] LABS: SARS-CoV-2 PCR by NAA Not Detected (NotDetected)
[2021-04-28] MEDS ORDERED: Ondansetron ODT 4 MG TAB PO PRN (12:44)
[2021-04-28] MEDS ORDERED: Ondansetron PF 4 MG/2 ML Vial IVP PRN (12:44)
[2021-04-28] MEDS ORDERED: hydrALAZINE 20 MG/ML VIAL SLOW IVP PRN (12:44)
[2021-04-28] MEDS: cefTRIAXone\\ROCEPHIN 2 GM in Sodium Chloride 0.9% 100 ML IVPB SCH (15:25)
[2021-04-28] MEDS: Acetaminophen 500 MG TAB PO PRN (18:17)
[2021-04-28] MEDS ORDERED: Non-Formulary Item 1 EACH (Dorzolamide Hcl/Timolol Maleat [Dorzolamide Hcl/Timolol Maleat OP SCH (21:00)
[2021-04-28] MEDS ORDERED: DESMOPRESSIN ACETATE 0.1 MG PO SCH (21:00)
[2021-04-28] MEDS: Desmopressin 0.2 mg Tablet PO SCH (21:44)
[2021-04-28] MEDS: Famotidine 20 MG TAB PO SCH (21:45)
[2021-04-29 04:50] LABS: #Basophils 0.1 thou/uL (0.0-0.2); #Monocytes 0.6 thou/uL (0.11-0.59); #Neutrophils 2.9 thou/uL (1.40-6.50); %Basophils 1.2 % (0.0-1.0); %Eosinophils 0.6 % (0.0-10.0); %Lymphocytes 35.7 % (21.0-51.0); %Monocytes 9.9 % (0.0-10.0); %Neutrophils 52.5 % (42.0-75.0); Hemoglobin 13.9 g/dL (14.0-18.0); Mean Corpuscular HGB CONC 32.7 g/dL (32.0-36.0); Mean Corpuscular Hemoglobin 31.8 pg (27.0-31.0); Mean Corpuscular Volume 97.3 fL (78.0-98.0); Mean Platelet Volume 6.6 fL (7.4-10.4); Platelet Count 337 thou/uL (130-400); RBC Distribution Width 10.9 % (11.5-14.5); Red Blood Cell (RBC) Count 4.39 mill/uL (4.70-6.10); White Blood Cell (WBC) Count 5.5 thou/uL (4.8-10.8)
[2021-04-29 05:17] LABS: Anion Gap 12 mmol/L (10-20); BUN (Urea Nitrogen) 17 mg/dL (8.4-25.7); Calc. Creatinine Clearance 86 mL/min (70-130); Calcium 9.4 mg/dL (7.8-10.44); Carbon Dioxide 20 mmol/L (23-31); Chloride 105 mmol/L (98-107); Glucose 99 mg/dL (80-115); Potassium 4.1 mmol/L (3.5-5.1); Sodium 133 mmol/L (136-145)
[2021-04-29] MEDS: Levothyroxine Sodium 50 MCG TAB PO SCH (07:22)
[2021-04-29] MEDS: Famotidine 20 MG TAB PO SCH ×2 (08:35→20:37)
[2021-04-29] MEDS: Finasteride 5 MG TAB PO SCH (08:35)
[2021-04-29] MEDS: Desmopressin 0.2 mg Tablet PO SCH ×2 (08:35→20:36)
[2021-04-29] MEDS: DorzolamidE/Timolol 2%/0.5% Ophth Soln 10 ml Bottle EA EYE SCH ×2 (08:36→20:37)
[2021-04-29] MEDS: cefTRIAXone\\ROCEPHIN 2 GM in Sodium Chloride 0.9% 100 ML IVPB SCH (13:47)
[2021-04-29] MEDS ORDERED: Montelukast Sodium 10 mg Tablet PO PRN (19:06)
[2021-04-29] MEDS ORDERED: Fluticasone Propionate Nasal Spray 16 gm Bottle NASAL PRN (19:06)
[2021-04-30] MEDS: Tamsulosin HCl 0.4 MG CAP PO SCH (05:43)
[2021-04-30] MEDS: Famotidine 20 MG TAB PO SCH ×2 (08:20→20:48)
[2021-04-30] MEDS: Amlodipine 10 MG TAB PO SCH (08:20)
[2021-04-30] MEDS: Sucralfate 1 GM TAB PO SCH (08:21)
[2021-04-30] MEDS: Levothyroxine Sodium 50 MCG TAB PO SCH (08:21)
[2021-04-30] MEDS: Finasteride 5 MG TAB PO SCH (08:21)
[2021-04-30] MEDS: DorzolamidE/Timolol 2%/0.5% Ophth Soln 10 ml Bottle EA EYE SCH ×2 (08:21→20:47)
[2021-04-30] MEDS: Desmopressin 0.2 mg Tablet PO SCH ×2 (08:57→20:48)
[2021-04-30] MEDS: cefTRIAXone\\ROCEPHIN 2 GM in Sodium Chloride 0.9% 100 ML IVPB SCH (15:09)
[2021-05-01] MEDS: Tamsulosin HCl 0.4 MG CAP PO SCH (06:00)
[2021-05-01] MEDS: Desmopressin 0.2 mg Tablet PO SCH ×2 (09:16→21:04)
[2021-05-01] MEDS: Levothyroxine Sodium 50 MCG TAB PO SCH (09:16)
[2021-05-01] MEDS: DorzolamidE/Timolol 2%/0.5% Ophth Soln 10 ml Bottle EA EYE SCH ×2 (09:16→21:04)
[2021-05-01] MEDS: Sucralfate 1 GM TAB PO SCH (09:16)
[2021-05-01] MEDS: Amlodipine 10 MG TAB PO SCH (09:16)
[2021-05-01] MEDS: Finasteride 5 MG TAB PO SCH (09:16)
[2021-05-01] MEDS: Famotidine 20 MG TAB PO SCH ×2 (09:17→21:03)
[2021-05-01] MEDS: cefTRIAXone\\ROCEPHIN 2 GM in Sodium Chloride 0.9% 100 ML IVPB SCH (13:34)
[2021-05-02] MEDS: Tamsulosin HCl 0.4 MG CAP PO SCH (06:01)
[2021-05-02] MEDS: Sucralfate 1 GM TAB PO SCH (08:42)
[2021-05-02] MEDS: Amlodipine 10 MG TAB PO SCH (08:42)
[2021-05-02] MEDS: Levothyroxine Sodium 50 MCG TAB PO SCH (08:42)
[2021-05-02] MEDS: Finasteride 5 MG TAB PO SCH (08:42)
[2021-05-02] MEDS: DorzolamidE/Timolol 2%/0.5% Ophth Soln 10 ml Bottle EA EYE SCH ×2 (08:42→21:03)
[2021-05-02] MEDS: Famotidine 20 MG TAB PO SCH ×2 (08:42→21:02)
[2021-05-02] MEDS: Desmopressin 0.2 mg Tablet PO SCH ×2 (09:59→21:02)
[2021-05-02] MEDS: cefTRIAXone\\ROCEPHIN 2 GM in Sodium Chloride 0.9% 100 ML IVPB SCH (15:08)
[2021-05-02] MEDS ORDERED: cefOXitin Sodium/Dextrose 2 GM/50 ML BAG ONE (17:36)
[2021-05-03] MEDS: Acetaminophen 500 MG TAB PO PRN (00:43)
[2021-05-03] MEDS: Tamsulosin HCl 0.4 MG CAP PO SCH (05:40)
[2021-05-03] MEDS: Finasteride 5 MG TAB PO SCH (09:21)
[2021-05-03] MEDS: Amlodipine 10 MG TAB PO SCH (09:21)
[2021-05-03] MEDS: Saccharomyces boulardii 250 MG CAP PO SCH (09:21)
[2021-05-03] MEDS: Desmopressin 0.2 mg Tablet PO SCH ×2 (09:21→21:44)
[2021-05-03] MEDS: Levothyroxine Sodium 50 MCG TAB PO SCH (09:21)
[2021-05-03] MEDS: Famotidine 20 MG TAB PO SCH ×2 (09:21→21:44)
[2021-05-03] MEDS: DorzolamidE/Timolol 2%/0.5% Ophth Soln 10 ml Bottle EA EYE SCH ×2 (09:22→21:44)
[2021-05-03] MEDS: Sucralfate 1 GM TAB PO SCH (09:22)
[2021-05-03] MEDS: cefTRIAXone\\ROCEPHIN 2 GM in Sodium Chloride 0.9% 100 ML IVPB SCH (15:20)
[2021-05-04] MEDS: Tamsulosin HCl 0.4 MG CAP PO SCH (05:42)
[2021-05-04] MEDS: Levothyroxine Sodium 50 MCG TAB PO SCH (09:18)
[2021-05-04] MEDS: DorzolamidE/Timolol 2%/0.5% Ophth Soln 10 ml Bottle EA EYE SCH ×2 (09:18→20:05)
[2021-05-04] MEDS: Amlodipine 10 MG TAB PO SCH (09:18)
[2021-05-04] MEDS: Finasteride 5 MG TAB PO SCH (09:18)
[2021-05-04] MEDS: Famotidine 20 MG TAB PO SCH ×2 (09:18→20:05)
[2021-05-04] MEDS: Sucralfate 1 GM TAB PO SCH (09:18)
[2021-05-04] MEDS: Desmopressin 0.2 mg Tablet PO SCH ×2 (09:18→22:15)
[2021-05-04] MEDS: Saccharomyces boulardii 250 MG CAP PO SCH (09:18)
[2021-05-04] MEDS: cefTRIAXone\\ROCEPHIN 2 GM in Sodium Chloride 0.9% 100 ML IVPB SCH (15:16)
[2021-05-04 16:25] VITALS: BP 125/77; TEMP 98.6
[2021-05-04] MEDS ORDERED: Rosuvastatin 20 MG TAB PO SCH (21:00)
== END 2021-05-04 21:45 | disposition swing bed (61) | DRG 690 ==
LOC: ERS 19:55 → ERHOLD 22:09 → 2SE 04-28 15:12 → OBSVTOIN 04-29 11:02 → SJJU 04-29 12:46
PROVIDERS: ADMIT Internal Medicine; ATTEND Internal Medicine
PROC: 0T9B70Z Drainage of Bladder with Drainage Device, Via Natural or Artificial Opening (ICD-10-PCS; principal; 2021-05-04)
DX: N39.0 Urinary tract infection, site not specified (principal); G91.8 Other hydrocephalus; B96.1 Klebsiella pneumoniae [K. pneumoniae] as the cause of diseases classified elsewhere; E03.9 Hypothyroidism, unspecified; K21.9 Gastro-esophageal reflux disease without esophagitis; D53.9 Nutritional anemia, unspecified; F03.90 Unspecified dementia, unspecified severity, without behavioral disturbance, psychotic disturbance, mood disturbance, and anxiety; I50.9 Heart failure, unspecified; I11.0 Hypertensive heart disease with heart failure; F32.9 Major depressive disorder, single episode, unspecified; H40.9 Unspecified glaucoma; N40.1 Benign prostatic hyperplasia with lower urinary tract symptoms; R39.14 Feeling of incomplete bladder emptying; F79 Unspecified intellectual disabilities; E78.2 Mixed hyperlipidemia; R47.9 Unspecified speech disturbances; R33.8 Other retention of urine; Z87.440 Personal history of urinary (tract) infections; Z79.899 Other long term (current) drug therapy; Z82.49 Family history of ischemic heart disease and other diseases of the circulatory system; Z98.890 Other specified postprocedural states; Z98.2 Presence of cerebrospinal fluid drainage device
CPT/HCPCS: 36415; 70551; 71045; 72141; 80048; 80053; 83605; 84443; 84484; 85025; 93005; 96365; G0378; J0694; J0696; J3490; U0003; U0005